=== PATIENT | male | born 1940 | race Caucasian/White ===

== ENCOUNTER 2024-01-15 16:03 | Inpatient (IN) | payer MEDICARE, SELFPAY ==
[2024-01-15 18:39] LABS: #Basophils Less than 0.03 10x3/uL (0.0-0.2); #Eosinphils Less than 0.03 10x3/uL (0.0-0.7); %Basophils 0.1 % (0.0-1.0); %Lymphocytes 6.9 % (21.0-51.0); %Monocytes 3.7 % (0.0-10.0); Hematocrit 35.4 % (42.0-52.0); Hemoglobin 12.2 g/dL (14.0-18.0); Mean Corpuscular HGB CONC 34.5 g/dL (32.0-36.0); Mean Corpuscular Hemoglobin 28.1 pg (27.0-31.0); Mean Corpuscular Volume 81.6 fL (78.0-98.0); Mean Platelet Volume 9.8 fL (7.4-10.4); Platelet Count 318 10x3/uL (130-400); RBC Distribution Width 13.6 % (11.5-14.5); Red Blood Cell (RBC) Count 4.34 mill/uL (4.70-6.10)
[2024-01-15 19:01] LABS: ALT (SGPT) 16 U/L (8-55); AST (SGOT) 38 U/L (5-34); Albumin 2.5 g/dL (3.4-4.8); Alkaline Phosphatase 39 U/L (40-110); Anion Gap 12 mmol/L (10-20); BUN (Urea Nitrogen) 30 mg/dL (8.4-25.7); Bilirubin, Total 0.5 mg/dL (0.2-1.2); Calc. Creatinine Clearance 0 mL/min (70-130); Calcium 9.7 mg/dL (7.8-10.44); Carbon Dioxide 25 mmol/L (23-31); Chloride 100 mmol/L (98-107); Estimated GFR 41; Globulin 4.9 g/dL (2.4-3.5); Glucose 158 mg/dL (83-110); Protein, Total 7.4 g/dL (5.8-8.1); Sodium 133 mmol/L (136-145)
[2024-01-15 19:05] LABS: Troponin I 0.034 ng/mL (< 0.028)
[2024-01-15 19:49] LABS: Bilirubin Negative (Negative); Blood, Urine Small (Negative); Glucose, Urine (Dipstick) Negative (Negative); Ketone, Urine Negative (Negative); Leukocyte Large (Negative); Nitrite Negative (Negative); Protein, Urine (Dipstick) > or equal to 300 mg/dL (Neg-Trace); Urobilinogen 0.2 mg/dL (Less than 2); pH, Urine 8.5 (5.0-9.0)
[2024-01-15 19:53] LABS: Clarity Extra Turbid (Clear); Specific Gravity, Urine 1.021 (1.002-1.036)
[2024-01-15 19:56] LABS: CAUTI Indications for Culture Alt mental st,lethar; RBC/HPF 0-3 HPF (0-3); WBC/HPF Greater Than 50 HPF (0-3)
[2024-01-15 19:57] LABS: Bacteria/HPF 3+ HPF (None Seen); Squamous Epithelial None Seen HPF (0-3); Triple Phosphate Crystal 1+ HPF (None Seen)
[2024-01-15 20:02] LABS: Urine Culture Reflex Yes Yes
[2024-01-15] MEDS ORDERED: cefTRIAXone (ROCEPHIN) 2 GM VIAL ONE (20:31)
[2024-01-15] MEDS ORDERED: Sodium Chloride 0.9% 100 ML ONE (20:31)
[2024-01-16 00:09] LABS: Troponin I 0.022 ng/mL (< 0.028)
[2024-01-16] MEDS ORDERED: Ondansetron ODT 4 MG TAB PO PRN (00:40)
[2024-01-16] MEDS ORDERED: Ondansetron PF 4 MG/2 ML Vial IVP PRN (00:40)
[2024-01-16 02:39] LABS: #Basophils Less than 0.03 10x3/uL (0.0-0.2); #Eosinphils Less than 0.03 10x3/uL (0.0-0.7); %Basophils 0.1 % (0.0-1.0); %Lymphocytes 14.9 % (21.0-51.0); %Monocytes 3.6 % (0.0-10.0); %Neutrophils 81.1 % (42.0-75.0); Hematocrit 30.5 % (42.0-52.0); Hemoglobin 10.1 g/dL (14.0-18.0); Mean Corpuscular HGB CONC 33.1 g/dL (32.0-36.0); Mean Corpuscular Hemoglobin 28.1 pg (27.0-31.0); Mean Platelet Volume 9.8 fL (7.4-10.4); Platelet Count 264 10x3/uL (130-400); RBC Distribution Width 13.8 % (11.5-14.5); Red Blood Cell (RBC) Count 3.59 mill/uL (4.70-6.10)
[2024-01-16 02:57] VITALS: BMI 21.5
[2024-01-16 02:58] LABS: Troponin I 0.014 ng/mL (< 0.028)
[2024-01-16] MEDS: Sodium Chloride 0.9% 1,000 ML IV SCH (03:55)
[2024-01-16 05:55] LABS: Anion Gap 13 mmol/L (10-20); BUN (Urea Nitrogen) 27 mg/dL (8.4-25.7); Calc. Creatinine Clearance 46 mL/min (70-130); Calcium 8.9 mg/dL (7.8-10.44); Carbon Dioxide 19 mmol/L (23-31); Chloride 105 mmol/L (98-107); Estimated GFR 60; Glucose 104 mg/dL (83-110); Potassium 3.3 mmol/L (3.5-5.1); Sodium 134 mmol/L (136-145)
[2024-01-16] MEDS ORDERED: Heparin 5,000 UNITS/ML VIAL ONE (08:25)
[2024-01-16] MEDS ORDERED: Famotidine 20 MG TAB ONE (08:58)
[2024-01-16] MEDS: Famotidine 20 MG TAB PO SCH (09:01)
[2024-01-16] MEDS: Heparin 5,000 UNITS/ML VIAL SC SCH (09:01)
[2024-01-16] MEDS: cefTRIAXone\\ROCEPHIN 1 GM in Sodium Chloride 0.9% 100 ML IVPB SCH (20:20)
[2024-01-16] MEDS: Docusate 100 MG CAP PO SCH (20:20)
[2024-01-16] MEDS: Potassium Chloride 20 MEQ TAB PO SCH (20:21)
[2024-01-17] MEDS: Levothyroxine Sodium 25 MCG TAB PO SCH (04:54)
[2024-01-17 05:53] LABS: #Basophils Less than 0.03 10x3/uL (0.0-0.2); %Basophils 0.3 % (0.0-1.0); %Eosinophils 0.7 % (0.0-10.0); %Lymphocytes 26.1 % (21.0-51.0); %Monocytes 3.7 % (0.0-10.0); %Neutrophils 68.8 % (42.0-75.0); Hematocrit 31.2 % (42.0-52.0); Hemoglobin 10.1 g/dL (14.0-18.0); Mean Corpuscular HGB CONC 32.4 g/dL (32.0-36.0); Mean Corpuscular Hemoglobin 27.5 pg (27.0-31.0); Mean Platelet Volume 9.8 fL (7.4-10.4); Platelet Count 261 10x3/uL (130-400); RBC Distribution Width 14.3 % (11.5-14.5); Red Blood Cell (RBC) Count 3.67 mill/uL (4.70-6.10)
[2024-01-17 06:16] LABS: Anion Gap 10 mmol/L (10-20); BUN (Urea Nitrogen) 24 mg/dL (8.4-25.7); Calc. Creatinine Clearance 60 mL/min (70-130); Calcium 8.8 mg/dL (7.8-10.44); Carbon Dioxide 22 mmol/L (23-31); Chloride 107 mmol/L (98-107); Estimated GFR 82; Glucose 89 mg/dL (83-110); Potassium 3.6 mmol/L (3.5-5.1); Sodium 135 mmol/L (136-145)
[2024-01-17] MEDS: Aspirin Chewable 81 MG TAB PO SCH (08:10)
[2024-01-17] MEDS: Tamsulosin HCl 0.4 MG CAP PO SCH (08:11)
[2024-01-17] MEDS: Finasteride 5 MG TAB PO SCH (08:11)
[2024-01-17 12:03] VITALS: BMI 21.5
[2024-01-18 05:07] LABS: #Basophils 0.03 10x3/uL (0.0-0.2); %Basophils 0.6 % (0.0-1.0); %Eosinophils 0.6 % (0.0-10.0); %Lymphocytes 29.5 % (21.0-51.0); %Monocytes 4.2 % (0.0-10.0); %Neutrophils 64.9 % (42.0-75.0); Hematocrit 32.8 % (42.0-52.0); Hemoglobin 10.8 g/dL (14.0-18.0); Mean Corpuscular HGB CONC 32.9 g/dL (32.0-36.0); Mean Corpuscular Hemoglobin 27.6 pg (27.0-31.0); Mean Corpuscular Volume 83.9 fL (78.0-98.0); Platelet Count 302 10x3/uL (130-400); RBC Distribution Width 13.7 % (11.5-14.5); Red Blood Cell (RBC) Count 3.91 mill/uL (4.70-6.10)
[2024-01-18 05:26] LABS: ALT (SGPT) 22 U/L (8-55); AST (SGOT) 33 U/L (5-34); Albumin 2.2 g/dL (3.4-4.8); Alkaline Phosphatase 33 U/L (40-110); Anion Gap 9 mmol/L (10-20); BUN (Urea Nitrogen) 18 mg/dL (8.4-25.7); Bilirubin, Total 0.3 mg/dL (0.2-1.2); Calc. Creatinine Clearance 68 mL/min (70-130); Calcium 8.8 mg/dL (7.8-10.44); Carbon Dioxide 23 mmol/L (23-31); Chloride 106 mmol/L (98-107); Estimated GFR 88; Globulin 4.1 g/dL (2.4-3.5); Glucose 110 mg/dL (83-110); Potassium 3.6 mmol/L (3.5-5.1); Protein, Total 6.3 g/dL (5.8-8.1); Sodium 134 mmol/L (136-145)
[2024-01-18] MEDS: Famotidine 20 MG TAB PO SCH (08:14)
[2024-01-18] MEDS ORDERED: FLU (Fluad Triv) TS24-25 (65UP)/MF59C/PF 45 MCG/0.5 ML Syringe IM ONE (09:00)
[2024-01-18] MEDS: Acetaminophen 325 MG TAB PO PRN (20:06)
[2024-01-19 20:05] VITALS: BP 151/75; TEMP 98.2
== END 2024-01-19 20:22 | DRG 698 ==
LOC: ERS 16:03 → ERHOLD 01-16 00:31 → T4-A 01-16 15:37 → OBSVTOIN 01-17 10:08
PROVIDERS: ADMIT Internal Medicine; ATTEND Internal Medicine
DX: N99.521 Infection of incontinent external stoma of urinary tract (principal); G93.41 Metabolic encephalopathy; N17.9 Acute kidney failure, unspecified; L02.31 Cutaneous abscess of buttock; N39.0 Urinary tract infection, site not specified; E87.1 Hypo-osmolality and hyponatremia; I10 Essential (primary) hypertension; I48.0 Paroxysmal atrial fibrillation; N40.0 Benign prostatic hyperplasia without lower urinary tract symptoms; E03.9 Hypothyroidism, unspecified; F03.90 Unspecified dementia, unspecified severity, without behavioral disturbance, psychotic disturbance, mood disturbance, and anxiety; Z66 Do not resuscitate; E87.6 Hypokalemia; R79.89 Other specified abnormal findings of blood chemistry; B96.4 Proteus (mirabilis) (morganii) as the cause of diseases classified elsewhere; B95.2 Enterococcus as the cause of diseases classified elsewhere
CPT/HCPCS: 36415; 70450; 71045; 74176; 80048; 80053; 81001; 83605; 83880; 84484; 85025; 87040; 87077; 87086; 87186; 93005; 96361; 96365; 96372; 96376; 97139; G0378; J0696; J1644; J7030

== ENCOUNTER 2024-02-08 10:02 | Emergency (ER) | payer MEDICARE ==
[2024-02-08 12:39] LABS: Bacteria/HPF 2+ HPF (None Seen); Bilirubin Negative (Negative); Blood, Urine 1+ (Negative); CAUTI Indications for Culture Alt mental st,lethar; Clarity Turbid (Clear); Glucose, Urine (Dipstick) Normal (Negative); Ketone, Urine Negative (Negative); Leukocyte 500 Leu/uL (Negative); Nitrite Negative (Negative); Protein, Urine (Dipstick) 10 mg/dL (Neg-Trace); Specific Gravity, Urine 1.002 (1.002-1.036); Squamous Epithelial None Seen HPF (0-3); WBC/HPF Greater than 50 HPF (0-3); pH, Urine 6.5 (5.0-9.0)
[2024-02-08 12:40] LABS: Urine Culture Reflex Yes Yes
[2024-02-08 13:11] LABS: #Basophils Less than 0.03 10x3/uL (0.0-0.2); #Eosinophils Less than 0.03 10x3/uL (0.0-0.7); %Basophils 0.2 % (0.0-1.0); %Eosinophils 0.2 % (0.0-10.0); %Lymphocytes 28.9 % (21.0-51.0); %Monocytes 9.7 % (0.0-10.0); %Neutrophils 60.6 % (42.0-75.0); Hematocrit 34.8 % (42.0-52.0); Hemoglobin 11.5 g/dL (14.0-18.0); Mean Corpuscular Hemoglobin 28.1 pg (27.0-31.0); Mean Corpuscular Volume 85.1 fL (78.0-98.0); Mean Platelet Volume 10.5 fL (7.4-10.4); Platelet Count 283 10x3/uL (130-400); Red Blood Cell (RBC) Count 4.09 mill/uL (4.70-6.10)
[2024-02-08 13:25] LABS: ALT (SGPT) 11 U/L (8-55); AST (SGOT) 32 U/L (5-34); Albumin 2.6 g/dL (3.4-4.8); Alkaline Phosphatase 42 U/L (40-110); Anion Gap 9 mmol/L (10-20); BUN (Urea Nitrogen) 15 mg/dL (8.4-25.7); Bilirubin, Total 0.5 mg/dL (0.2-1.2); Calc. Creatinine Clearance 0 mL/min (70-130); Calcium 8.9 mg/dL (7.8-10.44); Carbon Dioxide 24 mmol/L (23-31); Chloride 101 mmol/L (98-107); Estimated GFR 71; Globulin 4.8 g/dL (2.4-3.5); Glucose 99 mg/dL (83-110); Protein, Total 7.4 g/dL (5.8-8.1); Sodium 130 mmol/L (136-145)
[2024-02-08] MEDS ORDERED: cefTRIAXone (ROCEPHIN) 1 GM VIAL ONE (14:19)
[2024-02-08] MEDS ORDERED: Lidocaine 1% PF 5 ML VIAL ONE (14:19)
== END 2024-02-08 13:22 | disposition home or self-care (01) ==
LOC: ERS 10:02
DX: N39.0 Urinary tract infection, site not specified (principal); R41.82 Altered mental status, unspecified; Z55.6 Problems related to health literacy
CPT/HCPCS: 70450; 80053; 81001; 85025; 87077; 87086; 93005; J0696; 36415; 87186